=== PATIENT | male | born 1960 | race Caucasian/White ===

== ENCOUNTER 2022-10-19 08:02 | Outpatient (CLI) | payer BC, SELFPAY ==
[2022-10-19 15:04] LABS: Iron 120 ug/dL (37-181)
[2022-10-19 15:21] LABS: Hepatitis B Surface Antigen Negative (Negative); Percent Iron Saturation 35 % (20-50)
[2022-10-19 15:34] LABS: Hepatitis C Virus Antibody Negative (Negative)
== END 2022-10-19 08:03 | disposition home or self-care (01) ==
LOC: ANHGOSHLAB 08:02
PROVIDERS: PCP Internal Medicine; Visit Provider Internal Medicine
DX: R74.8 Abnormal levels of other serum enzymes (principal)
CPT/HCPCS: 36415; 82728; 83540; 83550; 86803; 87340

== ENCOUNTER 2023-01-29 08:00 | Outpatient (RCR) | payer BC, SELFPAY ==
--- NOTE | 2022-12-08 12:48 | OPREHPOC ---
Outpatient Therapy Plan of Care This is a Multidisciplinary Plan of Care that may contain components documented by all disciplines (PT, OT, and ST.) PT Problem 1 PT Problem #1 Knowledge Deficit PT Goal 1 Goal Pt to be IND with issued HEP Target Visit 8 PT Problem 2 PT Problem #2 Pain PT Goal 1 Goal Pt to report lumbar pain no greater than 3/10 in the last week Target Visit 8 PT Goal 2 Goal Pt to report 75% improvement in overall symptoms. Target Visit 8 PT Problem 3 PT Problem #3 Impaired Range of Motion PT Goal 1 Goal Pt to report equal stretch sensation with seated lumbar rotation Target Visit 8 PT Problem 4 PT Problem #4 Impaired Sensation PT Goal 1 Goal Pt to decline radiating symptoms in the last week. Target Visit 8
--- NOTE | 2022-12-08 12:49 | PTOPEVAL1 ---
Assessment and note entered by Silvio Barth, PT, DPT Evaluation Information Assessment Status Evaluation Diagnosis low back pain Onset 2 years ago Subjective Information Pt states a couple of years ago he was sitting in a chair that broke and he fell straight to the ground. He states he has back pain most of the time, but random days he does not, he has not noticed a pattern to this. When he is walking or standing for long periods of time the fronts of his legs will start to go asleep down to his knees . He states at rest he has a very small space of pain, but this increases with intensity and space with activity. Pt travels a lot for work, he states sleeping in different beds does not increase his pain. Reported Pain Level Pain Score 2: Self Report Assessment PT Clinical Summary Josiah presents to therapy today for his initial evaluation with a diagnosis of low back pain. Today he demonstrates a flattened lumbar spine in sitting and standing with tenderness to palpation along the sacral border. He demonstrates a flexion bias with proximation of symptoms with repeated flexion. He ambulates without any active trunk motion. Skilled therapy services are indicated to improve gait, spinal mobility, pain reports, standing tolerance, and to return to PLOF. Plan of Care Interventions Electrical Stimulation,Gait Training,Hot Pack/Cold Pack,Manual Therapy,Mechanical Traction,Neuro Re- education,Patient/Caregiver Educati,Prosthetic Training,Self-Care/Home Management PT Services Indicated Yes Treatment Frequency and 1-2x/wk for 8 visits Duration These treatments will address the objective and functional deficits as defined above. The patient will be advanced safely and appropriately in order for the patient to progress towards his/her prior level of function. Additional exercises will be introduced and as well as a comprehensive home exercise program upon discharge, if needed, ?to ensure carryover of functional gains achieved in the clinic. This treatment plan has been reviewed and agreement upon by the patient.
--- NOTE | 2023-01-05 08:48 | PTOPPROG ---
Assessment and note entered by Silvio Barth, PT, DPT Evaluation Information Assessment Status Progress Diagnosis low back pain Onset 2 years ago Subjective Information Pt states things are going well. He states his back is still sore but not as bad. He states it seems to still flair up for no reason. Pt reports 75% improvement in his symptoms. He states he still has numbness down his R leg but the intensity has decreased significantly. Assessment PT Clinical Summary Josiah presents to therapy today for his progress report following 4 visits of skilled therapy to treat his low back pain. Today he demonstrates improved hip and lumbar mobility and his pain reports are improving. He continues to have radicular pain but this is progressing well. Continuation of skilled therapy services are indicated to continue progressing towards therapy goals, improve pain reports and standing tolerance , and to return to PLOF. Plan of Care Interventions Electrical Stimulation,Gait Training,Hot Pack/Cold Pack,Manual Therapy,Mechanical Traction,Neuro Re- education,Patient/Caregiver Educati,Prosthetic Training,Self-Care/Home Management PT Services Indicated Yes Treatment Frequency and 1-2x/wk for 8 visits Duration These treatments will address the objective and functional deficits as defined above. The patient will be advanced safely and appropriately in order for the patient to progress towards his/her prior level of function. Additional exercises will be introduced and as well as a comprehensive home exercise program upon discharge, if needed, ?to ensure carryover of functional gains achieved in the clinic. This treatment plan has been reviewed and agreement upon by the patient.
--- NOTE | 2023-02-05 08:39 | PCPTNOTE ---
Patient called & cancelled scheduled appointment this date due to being unavailable. States he will call back to reschedule.
--- NOTE | 2023-03-08 08:23 | PTOPDC ---
Assessment and note entered by Silvio Barth, PT, DPT Evaluation Information Assessment Status Discharge - Pt Not Present Diagnosis low back pain Onset 2 years ago Subjective Information Called pt to follow up as he never rescheduled. Pt states he feels better than he has in years and does not feel he needs to return to therapy. Assessment PT Clinical Summary Josiah completed 6 visits of skilled therapy from 12/08/22 to 02/05/23. He will be discharged at this time per request.
== END 2023-03-08 09:25 | disposition home or self-care (01) ==
LOC: ANHGOSHPT 08:00
PROVIDERS: PCP Internal Medicine; Visit Provider Internal Medicine
DX: M54.50 Low back pain, unspecified (principal); G89.29 Other chronic pain
CPT/HCPCS: 97012; 97110; 97112; 97140; 97161; 97530

== ENCOUNTER 2023-03-17 09:39 | Outpatient (NON) | payer BC, SELFPAY ==
[2023-03-17 20:12] LABS: Appearance Urine Slightly Cloudy (Clear); Bilirubin Urine Negative (Negative); Blood Urine 2+ (Negative); Color Urine Yellow (Yellow); Glucose Urine UA Negative (Negative); Ketones Urine Negative (Negative); Leukocyte Esterase Ur 3+ LEU/UL (Negative); Nitrate Urine Positive (Negative); Protein Urine Negative (Negative); Urobilinogen Urine 0.2 mg/dL (<2.0); pH Urine 5.5 (5.0-9.0)
[2023-03-17 20:25] LABS: WBC Urine >100 /hpf (0-3)
[2023-03-17 20:26] LABS: Squamous Epithelial Cell Urine Few /hpf (Few)
[2023-03-17 20:27] LABS: Add Urine Microscopic? YES; Bacteria Urine 2+ /hpf
== END 2023-03-17 09:40 | disposition home or self-care (01) ==
LOC: ANHGOSHLAB 09:41
PROVIDERS: PCP Internal Medicine; Visit Provider Clinical Nurse Specialist
DX: R50.9 Fever, unspecified (principal)
CPT/HCPCS: 81001; 87077; 87086; 87186

== ENCOUNTER 2023-04-07 10:15 | Outpatient (CLI) | payer BC, SELFPAY ==
[2023-04-07 14:11] LABS: Appearance Urine Clear (Clear); Bilirubin Urine Negative (Negative); Blood Urine Negative (Negative); Color Urine Yellow (Yellow); Glucose Urine UA Negative (Negative); Ketones Urine Negative (Negative); Leukocyte Esterase Ur Negative LEU/UL (Negative); Nitrate Urine Negative (Negative); Protein Urine Negative (Negative); Specific Grav Ur 1.006 (1.001-1.035)
[2023-04-07 14:14] LABS: Add Urine Microscopic? NO
[2023-04-07 14:39] LABS: Alanine Aminotransferase 76 U/L (6-50); Albumin Level 4.4 g/dL (3.5-5.1); Alkaline Phosphatase 41 U/L (38-126); Aspartate Amino Transferase 82 U/L (17-59); Bilirubin,Total 1.4 mg/dL (0.2-1.3); Cholesterol 222 mg/dL (0-200); HDL Direct 53 mg/dL; Triglycerides 191 mg/dL (<150)
[2023-04-07 14:54] LABS: LDL Cholesterol Direct 132 mg/dL
[2023-04-11 14:44] LABS: Apolipoprotein B 121 mg/dL (<90)
== END 2023-04-07 10:16 | disposition home or self-care (01) ==
LOC: ANHGOSHLAB 10:17
PROVIDERS: Clinical Nurse Specialist; PCP Internal Medicine; Visit Provider Internal Medicine
DX: R74.8 Abnormal levels of other serum enzymes (principal); E78.5 Hyperlipidemia, unspecified; N39.0 Urinary tract infection, site not specified
CPT/HCPCS: 36415; 80061; 80076; 81003; 82172

== ENCOUNTER 2023-05-04 07:16 | Outpatient (CLI) | payer BC, SELFPAY ==
--- NOTE | ~2023-05-04 | US_ITS ---
US abdomen limited INDICATION: Abnormal levels of serum enzymes. PROCEDURE: Realtime right upper abdominal ultrasound. COMPARISON: No prior studies for comparison. FINDINGS: The pancreas is normal without focal mass or pancreatic ductal dilation. Liver echotexture is increased, consistent with fatty infiltration. There is normal directional flow in the portal ve in. There is comet tail artifact from nondependent bladder wall, consistent with adenomyomatosis. No gall stones identified. Common bile duct measures 5 mm. No sonographic Orantes's sign. IMPRESSION: 1: Gallbladder adenomyomatosis. 2: Hepatic steatosis. Reviewed, dictated and finalized at location L. LMAN
== END 2023-05-04 07:17 | disposition home or self-care (01) ==
PROVIDERS: PCP Internal Medicine; Visit Provider Internal Medicine
DX: E78.5 Hyperlipidemia, unspecified (principal); R74.8 Abnormal levels of other serum enzymes; K76.0 Fatty (change of) liver, not elsewhere classified; K82.8 Other specified diseases of gallbladder
CPT/HCPCS: 76705

== ENCOUNTER 2023-08-10 11:20 | Outpatient (CLI) | payer BC, SELFPAY ==
[2023-08-10 14:41] LABS: Hemoglobin 16.5 g/dL (14.0-18.0); Mean Corpuscular HGB Conc 34.4 g/dl (32-36); Mean Corpuscular Hemoglobin 33.6 pg (26-34); Mean Corpuscular Volume 97.8 fl (80-100); Mean Platelet Volume 10.7 fl (7.4-10.4); Platelet Count Result 219 k/mm3 (150-375); Red Blood Count 4.91 M/mm3 (4.6-6.20); Red Cell Distribution Width 12.2 % (11.5-14.5); White Blood Count 5.7 K/mm3 (4.5-10.0)
[2023-08-10 14:47] LABS: LDL Cholesterol Direct 122 mg/dL
[2023-08-10 14:54] LABS: Alanine Aminotransferase 47 U/L (6-50); Albumin Level 4.1 g/dL (3.5-5.1); Alkaline Phosphatase 38 U/L (38-126); Anion Gap 4 mmol/L (4-12); Aspartate Amino Transferase 70 U/L (17-59); Bilirubin,Total 1.6 mg/dL (0.2-1.3); Blood Urea Nitrogen 13 mg/dL (9-20); Calcium 9.6 mg/dL (8.4-10.2); Carbon Dioxide 30 mmol/L (22-30); Chloride 103 mmol/L (98-107); Cholesterol 196 mg/dL (0-200); Estimated Glomerular Filt Rate > 60; Glucose 97 mg/dL (65-110); HDL Direct 45 mg/dL; Potassium 3.5 mmol/L (3.4-5.0); Sodium 137 mmol/L (137-145); Triglycerides 230 mg/dL (<150)
[2023-08-12 20:16] LABS: Apolipoprotein B 105 mg/dL (<90)
== END 2023-08-10 11:21 | disposition home or self-care (01) ==
LOC: ANHGOSHLAB 11:22
PROVIDERS: PCP Internal Medicine; Visit Provider Internal Medicine
DX: E78.5 Hyperlipidemia, unspecified (principal); R74.8 Abnormal levels of other serum enzymes
CPT/HCPCS: 36415; 80053; 80061; 82172; 82728; 85027

== ENCOUNTER 2024-03-28 14:51 | Outpatient (CLI) | payer MEDICARE, SELFPAY ==
[2024-03-28 19:24] LABS: Basophils Absolute Auto 0.1 K/mm3 (0.0-0.1); Eosinophils Absolute Auto 0.5 K/mm3 (0-0.3); Eosinophils Percent Auto 5.3 % (0-4.4); Hematocrit 47.1 % (42.0-52.0); Immature Granulocyte Absolute 0.09 K/mm3 (0.00-0.031); Immature Granulocyte Percent A 1.1 % (0-0.5); Lymphocytes Absolute Auto 2.34 K/mm3 (0.9-3.2); Lymphocytes Percent Auto 27.8 % (18.3-44.2); Mean Corpuscular HGB Conc 36.1 g/dl (32-36); Mean Corpuscular Hemoglobin 35.1 pg (26-34); Mean Corpuscular Volume 97.1 fl (80-100); Mean Platelet Volume 10.8 fl (7.4-10.4); Monocytes Absolute Auto 0.7 K/mm3 (0.1-0.6); Monocytes Percent Auto 8.8 % (2.6-8.5); Neutrophils Absolute Auto 4.7 K/mm3 (1.3-6.7); Platelet Count Result 186 k/mm3 (150-375); Red Blood Count 4.85 M/mm3 (4.6-6.20); Red Cell Distribution Width 12.6 % (11.5-14.5); White Blood Count 8.4 K/mm3 (4.5-10.0)
[2024-03-28 19:34] LABS: Alanine Aminotransferase 57 U/L (6-50); Albumin Level 4.4 g/dL (3.5-5.1); Alkaline Phosphatase 36 U/L (38-126); Anion Gap 7 mmol/L (4-12); Aspartate Amino Transferase 97 U/L (17-59); Bilirubin,Total 2.2 mg/dL (0.2-1.3); Blood Urea Nitrogen 16 mg/dL (9-20); Calcium 9.4 mg/dL (8.4-10.2); Carbon Dioxide 27 mmol/L (22-30); Chloride 103 mmol/L (98-107); Estimated Glomerular Filt Rate > 60; Glucose 90 mg/dL (65-110); Sodium 137 mmol/L (137-145)
[2024-03-28 19:59] LABS: Prostate Specific Antigen 1.2 ng/mL (< OR = 4.0)
[2024-03-28 20:06] LABS: Iron 145 ug/dL (49-181)
[2024-03-28 20:16] LABS: Percent Iron Saturation 48 % (20-50)
== END 2024-03-28 14:52 | disposition home or self-care (01) ==
PROVIDERS: PCP Internal Medicine; Visit Provider Clinical Nurse Specialist
DX: Z12.5 Encounter for screening for malignant neoplasm of prostate (principal); I10 Essential (primary) hypertension; K75.81 Nonalcoholic steatohepatitis (NASH); R74.8 Abnormal levels of other serum enzymes; R79.89 Other specified abnormal findings of blood chemistry; G56.01 Carpal tunnel syndrome, right upper limb
CPT/HCPCS: 36415; 80053; 82728; 83540; 83550; 84153; 84443; 85025; G0103

== ENCOUNTER 2024-03-30 09:50 | Outpatient (CLI) | payer MEDICARE, SELFPAY | END 2024-03-30 09:51 | disposition home or self-care (01) | PROVIDERS: PCP Internal Medicine; Visit Provider Clinical Nurse Specialist | DX: H93.13 Tinnitus, bilateral (principal); H90.3 Sensorineural hearing loss, bilateral | CPT/HCPCS: 92557; 92567 ==

== ENCOUNTER 2024-04-03 08:42 | Outpatient (CLI) | payer MEDICARE, SELFPAY ==
--- NOTE | ~2024-04-03 | US_ITS ---
RIGHT UPPER QUADRANT ABDOMINAL ULTRASOUND (Doppler ultrasound interrogation techniques used as needed for this exam.) Ordering provider: SURY BranhamP-C History: . K75.81 - Nonalcoholic steatohepatitis (BROOKS) . Comparison: None. FINDINGS: PANCREAS: Normal echotexture and size. PORTAL VEIN: Hepatopedal flow demonstrated. LIVER: Normal size with fat infiltration. Hypoechoic area measuring 0.9 x 0.7 x 1 cm is seen in the r ight lobe adjacent to the gallbladder. No perihepatic fluid collections are identified. BILIARY DUCTS: No intra or extrahepatic biliary dilation. Common bile duct measures 4.6 mm in diamete r which is normal for patient's age. GALLBLADDER: Comet tail artifact. No stones, sludge, gallbladder wall thickening or pericholecystic f luid. Negative sonographic Orantes's sign. FREE FLUID: None visualized within the upper abdomen. IMPRESSION: Fat infiltration of the liver. Small cyst in the liver right lobe near the gallbladder. Highly sugges tive of gallbladder cholesterolosis. Otherwise, normal right upper quadrant ultrasound. Reviewed, dictated and finalized at location A. [facility] [employer] IMPRESSION: Fat infiltration of the liver. Small cyst in the liver right lobe near the gall bladder. Highly suggestive of gallbladder cholesterolosis. Otherwise, normal ri t upper quadrant ultrasound.
== END 2024-04-03 08:43 | disposition home or self-care (01) ==
LOC: MICIMG 08:43
PROVIDERS: PCP Internal Medicine; Visit Provider Clinical Nurse Specialist
DX: K76.0 Fatty (change of) liver, not elsewhere classified (principal); K82.8 Other specified diseases of gallbladder
CPT/HCPCS: 76705

== ENCOUNTER 2025-01-04 10:52 | Outpatient (CLI) | payer MEDICARE, SELFPAY ==
--- OUTSIDE RECORDS SUMMARY | 2025-01-04 11:00 | XMS_ITS | Encounter Summary ---
Author Organization [facility] Address [address] [place] [address] Care Team Providers Care Drier Feeder Name Role Phone Gomez Elliott MD Unavailable [phone] Myra Mckay MD Primary Care Provider [phone] Danyelle Young NP Primary Care Provider [phone] Jt Dias MD Primary Care Provider [phone] Encounter Details Date Type Department Care Team (Late st Contact Info) Description 10/28/2021 [facility] Wire[employer] Message Enc [facility] [address] [place] [id number] Roberto Lawrence MD [address] [place] [id number] Visit Follow Up Social History Tobacco Use Types Packs/Day Years Used Date Smoking Tobacco: Never Smokeless Tobacco: Never Comments:non smoker Alcohol Use Standard Drinks/Week Comments Yes 0 (1 standard drink = 0.6 oz pur e alcohol) 3-4 times aweek PHQ-2 Answer Date Recorded PHQ-2 Score - If the patient scores above 3, please move on to questions 3-9 0 10/04/2020 Sex and Gender Information Value Date Recorded Sex Assigned at Not on file Legal Sex Male 5:49 PM OFFICE AIDE Gender Identity Not on file Sexual Orientation Not on file COVID-19 Exposure Response Date Recorded In the last 10 days, have yo u been in contact with someone who was confirmed or suspected to have Coronavirus/COVID-19? No / Unsure 10/28/2021 9:31 AM CDT documented as of this encounter Plan of Treatment Not on file documented as of this encounter Visit Diagnoses Not on filedocumented in this encounter Care Teams Drier Feeder Relationship Specialty Start Date End Date Myra Mckay MD [address] [place] [phone] PCP - General FAMILY PRACTICE 03/29/20 06/28/22 [place] [phone] PCP - General Nurse Practitioner [facility] 06/29/2210/08 Jt Dias MD [address] [place] [address] [place] [address] PCP - General FAMILY PRACTICE 10/24/22 Gomez Elliott MD [address] [place] [phone] FAMILY PRACTICE 02/17/20 documented as of this encounter
--- OUTSIDE RECORDS SUMMARY | 2025-01-04 11:01 | XMS_ITS | Clinical Summary ---
Author Organization [facility] Address [address] [place] [address] Care Team Providers Care Crab Catcher Name Role Phone Unavailable Primary Care Provider Unavailabl e Social History Tobacco Use Types Packs/Day Years Used Date Smoking Tobacco: Never Assessed Sex and Gender Information Value Date Recorded Sex Assigned at Not on file Legal Sex Male 11:09 AM CDT Gender Identity Not on file Sexual Orientation Not on file Plan of Treatment Upcoming Encounters Date Type Department Care Team (Late st Contact Info) Description 01/24/2025 1:30 PM CDT Office Visit [facility] Oncology and Hematology - [address] [facility] [address] [place] [address] Marv Ramires MD [address] [facility] [address] [place] [address] Health Maintenance Due Date Last Done Comments DTAP/TDAP/TD VACCINES (1 - Tdap) 1977 COLORECTAL SCREENING 2003 Colorectal Cancer Screening 2003 FIT-DNA Q 3 years 2003 FIT/FOBT Q 1 year 2003 Flex Sig/CT Colonography Q 5 years 2003 PNEUMOCOCCAL VACCINE 50+ YEARS (1 of 1 - PCV) 06/23/19 09 ZOSTER VACCINE (1 of 2) 2008 INFLUENZA VACCINE (#1) 2024 RSV VACCINE (60+ or ) (1 - 1-dose 75+ series) 2033 Insurance MEDICARE PART A AND B [employer] MEDICARE SUPP AESSI
--- OUTSIDE RECORDS SUMMARY | 2025-01-04 11:01 | XMS_ITS | Clinical Summary ---
Author Organization [facility] Address [address] [place] [address] Phone Care Team Providers Care Industrial Maintenance Electrician Name Role Phone Aaron Brian DO Primary Care Provider [phone] Allergies Active Allergy Reactions Criticality Noted Date Comments Chlorhexidin-Isopropyl Alcohol Blisters High 03/22 Medications rosuvastatin (CRESTOR) 5 mg tabletIndicatio ns:hyperlipidem ia Take 1 tablet (5 mg total) by mouth optical effects line up person before breakfast Active Klor-Con M20 20 mEq CR tabletIndicatio ns:supplement Take 1 tablet (20 mEq total) by mouth 4 (four) times a day Active metoprolol XL (TOPROL-XL) 200 mg extended release tabletIndicatio ns:hypertension Take 0.5 tablets (100 mg total) by mouth optical effects line up person before breakfast Active furosemide (LASIX) 20 mg tabletIndicatio ns:Edema Take 1 tablet (20 mg total) by mouth daily as needed Active fenofibrate choline (TRILIPIX) 135 mg capsuleIndicati ons:hyperlipide kezia Take 1 capsule (135 mg total) by mouth optical effects line up person before breakfast Active chlorthalidone (HYGROTON) 50 mg tabletIndicatio ns:hypertension Take 0.5 tablets (25 mg total) by mouth optical effects line up person before breakfast 7 Active aspirin 81 mg enteric coated tabletIndicatio ns:prevention of thrombosis Take 1 tablet (81 mg total) by mouth optical effects line up person before breakfast Active allopurinoL (ZYLOPRIM) 300 mg tabletIndicatio ns:prevention of acute gout attack Take 1 tablet (300 mg total) by mouth optical effects line up person before breakfast Active acetaminophen (TYLENOL) 500 mg tablet Take 1 tablet (500 mg total) by mouth every 6 (six) hours as needed for pain 28 tablet 3 Active Additional Information Patient taking differently: 1,000 mgoral Every 6 hours PRN, pain, Informant: Self, Reported on 08/13/2023 ibuprofen 200 mg tab/cap Take 2 tablet/capsule (400 mg total) by mouth every 8 (eight) hours as needed for pain or headaches Active acetaminophen (TYLENOL) 500 mg tablet Take 1 tablet (500 mg total) by mouth every 6 (six) hours as needed for pain 30 tablet 4 Active oxyCODONE (ROXICODONE) 5 mg immediate release tabletIndicatio ns:Pain Take 1 tablet (5 mg total) by mouth every 4 (four) hours as needed for pain 10 tablet 4 Active Active Problems Problem Noted Date Diagnosed Date Carpal tunnel syndrome of left wrist 08/12/2023 Carpal tunnel syndrome of right wrist 02/05/2023 Surgical History Surgery Date Site/Laterality Comments KNEE SURGERY 05/10/2009 - 05/09/2010 Right meniscus SHOULDER ARTHROSCOPY W/ ROTA TOR CUFF REPAIR 05/10/2004 - 05/09/2005 Left COLONOSCOPY 05/10/2016 - 05/09/2017 CATARACT EXTRACTION 05/10/2015 - 05/09/2016 Right CATARACT EXTRACTION W/ INTRA OCULAR LENS IMPLANT 05/10/2015 - 05/09/2016 Left CARPAL TUNNEL RELEASE 02/16/2023 Right Family History Medical History Relation Name Comments Anesthesia problems Neg Hx Social History Tobacco Use Types Packs/Day Years Used Date Smoking Tobacco: Never Passive Smoke Exposure: Never Smokeless Tobacco: Never Tobacco Cessation:Counseling Given: Not Answered AUDIT-C Answer Date Recorded Q1: How often do you have a drink containing alc ohol? 2-3 times a week 08/27/2023 Q2: How many drinks containi ng alcohol do you have on a typical day when you are drinking? 3 or 4 08/27/2023 Q3: How often do you have si x or more drinks on one occasion? Never 08/27/2023 Personal Safety Answer Date Recorded Have you ever been in or are you currently in a harmful physical or emotional relationship or is someone making you feel afraid or unsafe? Denies 08/27/2023 Sex and Gender Information Value Date Recorded Sex Assigned at Not on file Legal Sex Male 9:24 AM CDT Gender Identity Not on file Sexual Orientation Not on file Obstetrics History Last Filed Vital Signs Vital Sign Reading Time Taken Comments Blood Pressure 157/85 08/27/2023 9:10 AM CDT Pulse 49 08/27/2023 9:10 AM CDT Temperature 36 C (96.8 F) 08/27/2023 8:35 AM CDT Respiratory Rate 11 08/27/2023 7:00 AM CDT Oxygen Saturation 94% 08/27/2023 9:10 AM CDT Inhaled Oxygen Concentration - - Weight 99.8 kg (220 lb) 08/13/2023 2:40 PM CDT Height 177.8 cm (5' 10) 08/13/2023 2:40 PM CDT Body Mass Index 31.57 08/13/2023 2:40 PM CDT Plan of Treatment Health Maintenance Due Date Last Done Comments Colon Cancer Screening-Colonoscopy 1958 Depression Screening 1958 Hepatitis C Screening 1958 Prostate Cancer Screening-PSA 1958 Hepatitis B Screening 1976 Pneumococcal vaccine 65+ (1 of 1 - PCV) 2008 Abdominal Aortic Aneurysm (A AA) Screen 2023 Well Visit 65+ 2023 Covid-19 Vaccine ( season) 2024 05/04/2021, 08/29/2020, 08/01/2020 DTaP/Tdap/Td Vaccine (2 - Td or Tdap) 05/10/202405/2014 Fall Risk Assessment 08/26/2024 08/27/2023 Influenza Vaccine (#1) 2025 2, 04/12/2021, 03/19/2020 Zoster Vaccine Completed 07/01/2019, 04/16/2019 Insurance [employer] [facility] [employer] Care Teams Industrial Maintenance Electrician Relationship Specialty Start Date End Date Aaron Brian DO PCP - General Internal Medicine 12/17/22
--- OUTSIDE RECORDS SUMMARY | 2025-01-04 11:01 | XMS_ITS | Clinical Summary ---
Author Organization [facility] Address [address] [place] [address] Care Team Providers Care Knife Setter Grinder Machine Name Role Phone Gomez Elliott MD Unavailable [phone] Jt Dias MD Primary Care Provider Allergies No known active allergies Medications aspirin EC 81 MG tablet Take 81 mg by mouth daily. Active rosuvastatin (CRESTOR) 5 MG tabletIndication s:Dyslipidemia Take 1 tablet (5 mg total) by mouth daily. 90 tablet 3 3 Active metoprolol succinate ER (TOPROL-XL) 200 MG 24 hr tabletIndication s:Hypertension, unspecified type Take 1 tablet one day alternating with 1/2 a tablet the next day. 90 tablet 3 3 Active furosemide (LASIX) 20 MG tabletIndication s:Edema, unspecified type Take 1 tablet (20 mg total) by mouth daily as needed. 90 tablet 3 3 Active chlorthalidone (HYGROTEN) 25 MG tabletIndication s:Hypertension, unspecified type Take 1 tablet (25 mg total) by mouth daily. 90 tablet 3 3 Active allopurinol (ZYLOPRIM) 300 MG tabletIndication s:Gout of foot, unspecified cause, unspecified chronicity, unspecified laterality Take 1 tablet (300 mg total) by mouth daily. 90 tablet 3 3 Active Choline Fenofibrate (FENOFIBRIC ACID) 135 MG CAPSULE DELAYED RELEASEIndicatio ns:Dyslipidemia Take 1 capsule by mouth daily. 90 capsule 3 3 Active potassium chloride CR (KLOR-CON M20) 20 MEQ tabletIndication s:Hypokalemia Take 3 tablets (60 mEq total) by mouth 2 (two) times daily. 180 tablet 3 Active Active Problems Problem Noted Date Diagnosed Date Hand numbness 10/04/2020 Overview (07/08/2022): September Has been having problems with numbness tingling and pain in bilateral hands for about 6 months Right is worse than the left Wakes up and his complete hand will be asleep Happens frequently throughout the day as well Reports that he has had neck pain for a number of years, has a history of left shoulder arthroscopy and not long after that he was lifting himself out of the pool, felt a pop on the right side and has had this pain since then, reports that he did have imaging of the area at the time and was told it was unremarkable Denies any weakness in the hands Assessment & Plan (10/04/2020 8:46 PM CDT): Exam is concerning for carpal tunnel although he may have some ulnar entrapment as well, does not appear to have cervical spine disease He will start with bracing his right wrist for sure during sleep, possibly during the day as well, agreeable to go see Ortho 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 Asymptomatic. 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 No SOB or chest pain. BP has been running WNL at home. Mar Doing well on decreased chlorthalidone and lasix. Checks BP at home. Denies cp, sob, le edema, and headaches. : Previously had been taking chlorthalidone for his blood pressure but needed very high doses of potassium, he was then switched to spironolactone but feels that this makes him retain fluid, primarily in the chest, wakes up short of breath gasping for air. Has mild leg swelling related to frequent air travel but no major edema, does not really report orthopnea except for after a night of sleep but otherwise can lay down flat with no problems, no chest pain pressure or squeezing. Walks about 1/2 mile daily at 2 to 3 miles an hour a 1% incline without any issues : Put on metoprolol for borderline BP and abnormal EKG; not sure what the abnormality was Checks blood pressure at home with a wrist cuff and it runs 120-130s/70 - 80s He walks briskly on his treadmill about 3 times a week and denies any chest pain pressure squeezing Assessment & Plan (07/08/2022 8:27 AM HEALTH AND SAFETY ADVISOR): Labs today No change Assessment & Plan (04/01/2022 8:55 AM HEALTH AND SAFETY ADVISOR): Labs at next visit No change to medication Assessment & Plan (10/04/2020 8:44 PM CDT): Discussed with patient that both medications have a weak diuretic effect so he really should not be getting fluid overloaded He seems overall euvolemic today and his symptoms are more concerning for sleep apnea He would like to restart the chlorthalidone with potassium and just see if it makes him feel better, if it does then we may switch him to a better blood pressure agent he does not require so much potassium, it does not make him feel better than he is agreeable to sleep apnea and/or cardiology work-up Assessment & Plan (03/29/2020 12:43 PM HEALTH AND SAFETY ADVISOR): Recommend he get an arm cuff and monitor more frequently at home, different times of the day Discussed that our goal is to have him lower than 140/90 Colon polyps 03/29/2020 Overview (07/08/2022): Jun Follows with Dr. Hugo. Due this winter for repeat colonoscopy. Mar Due for follow-up colonoscopy, needs referral to a new provider Has a history of colon cancer in her paternal aunt, no first-degree relatives Father and brother both with ulcerative colitis Assessment & Plan (07/08/2022 8:29 AM HEALTH AND SAFETY ADVISOR): Managed by [facility]. Assessment & Plan (03/29/2020 12:41 PM HEALTH AND SAFETY ADVISOR): Referred to Dr. Hugo Gout of foot 03/29/2020 Overview (07/08/2022): Jun On allopurinol. No issues with flares. Not interested in trial off. Mar Has history of one episode years ago, has been on allopurinol ever since Feels like the symptoms may worsen after frequent travel Assessment & Plan (07/08/2022 8:30 AM HEALTH AND SAFETY ADVISOR): No change Assessment & Plan (04/01/2022 8:56 AM HEALTH AND SAFETY ADVISOR): No changes Assessment & Plan (03/29/2020 12:42 PM HEALTH AND SAFETY ADVISOR): Discussed doing a trial off of medication, entirely up to him, elected to stay on for now Healthcare maintenance Overview (07/08/2022): COVID: x3 PNA: @ 63 INFLUENZA: UTD SHINGLES: UTD AAA LUNG SCREEN COLON: 2019, due Winter 2022 LABS: 2021 Assessment & Plan (07/08/2022 8:33 AM HEALTH AND SAFETY ADVISOR): Will make sure he sees Dr. Hugo this winter Labs today. Resolved Problems Problem Noted Date Diagnosed Date Resolved Date Edema, unspecified type 07/10/202103/11 Family history of colon cancer 03/29/2020 03/29/2020 Immunizations Immunization Administration Dates Next Due Influenza Adult (Generic) 05/08/2022,04/12/2021, 03/19/2020 PFIZER COVID-19 (ORIGINAL FO RMULATION, PURPLE CAP) mRNA, LNP-S, PF, 30 MCG/0.3 ML DOSE 05/04/2021,08/29/2020,08/01/2020 Shingrix 07/01/2019,04/16/2019 Tdap (Generic) 05/10/2014 Family History Medical History Relation Comments Prostate Cancer Brother Ulcerative Colitis Brother Emphysema Father Ulcerative Colitis Father Heart Attack Maternal Grandfather Dementia Mother Hypertension Mother Lipids Mother Colon Cancer Paternal Aunt Relation Status Comments Brother Father Maternal Grandfather Mother Alive Paternal Aunt Social History Tobacco Use Types Packs/Day Years Used Date Smoking Tobacco: Never Smokeless Tobacco: Never Tobacco Cessation:Counseling Given: No Comments:non smoker Alcohol Use Standard Drinks/Week Comments Yes 0 (1 standard drink = 0.6 oz pur e alcohol) 3-4 times aweek PHQ-2 Answer Date Recorded PHQ-2 Score - If the patient scores above 3, please move on to questions 3-9 0 04/01/2022 Sex and Gender Information Value Date Recorded Sex Assigned at Not on file Legal Sex Male 5:49 PM HEALTH AND SAFETY ADVISOR Gender Identity Not on file Sexual Orientation Not on file Last Filed Vital Signs Vital Sign Reading Time Taken Comments Blood Pressure 128/68 07/08/2022 8:06 AM HEALTH AND SAFETY ADVISOR Pulse 52 07/08/2022 8:06 AM HEALTH AND SAFETY ADVISOR Temperature 36.9 C (98.5 F) 04/01/2022 8:21 AM HEALTH AND SAFETY ADVISOR Respiratory Rate 16 07/08/2022 8:06 AM HEALTH AND SAFETY ADVISOR Oxygen Saturation 98% 07/08/2022 8:06 AM HEALTH AND SAFETY ADVISOR Inhaled Oxygen Concentration - - Weight 105.2 kg (231 lb 14.4 oz) 07/08/2022 8:06 AM HEALTH AND SAFETY ADVISOR Height 177.8 cm (5' 10) 07/08/2022 8:06 AM HEALTH AND SAFETY ADVISOR Body Mass Index 33.27 07/08/2022 8:06 AM HEALTH AND SAFETY ADVISOR Plan of Treatment Health Maintenance Due Date Last Done Comments Pneumococcal Vaccine: 50+ Years (1 of 1 - PCV) 2008 COVID-19 Vaccine (4 - 2023-2 5 season) 2024 05/04/2021, 08/29/2020, 08/01/2020 DTaP, Tdap and Td Vaccines ( 2 - Td or Tdap) 05/10/2024 05/10/2014 Colorectal Cancer Screening Colonoscopy (10 Years) 05/14/2026 05/14/2016 RSV Immunization or 60+ Years (1 - 1-dose 75+ series) 2033 Zoster Vaccines Completed 07/01/2019, 04/16/2019 Hepatitis C Completed 07/10/2021 Meningococcal B Vaccine Aged Out No l onger eligible based on patient's age to complete this topic Meningococcal Vaccine Aged Out No rene melida eligible based on patient's age to complete this topic RSV Immunizations Under 20 Months Aged Out No longer eligible b ased on patient's age to complete this topic Procedures Procedure Name Priority Date/Time Associated Diagnosis Comments HEPATITIS C ANTIBODY Routine 07/10/2021 9:23 AM HEALTH AND SAFETY ADVISOR Need for hepatitis C screening test COLONOSCOPY GENERIC (SCAN ORDER) 05/14/2016 from Last 3 Months or Most Recently Relevant to Health Maintenance Results * HEPATITIS C ANTIBODY (07/10/2021 9:23 AM HEALTH AND SAFETY ADVISOR) HEPATITIS C AB NON-REACTI VE NON-REACT ANGY 07/11/2021 6:53 PM HEALTH AND SAFETY ADVISOR [facility] Comment: ANTIBODIES TO HCV NOT DETECTED. DOES NOT EXCLUDE THE POSSIBILITY OF EXPOSURE TO HCV. 07/10/2021 9:23 AM HEALTH AND SAFETY ADVISOR us Myra Mckay MD LABORATORY Final Resu lt [facility] [address] [place] [id number], [id number] * COLONOSCOPY GENERIC (05/14/2016) 05/14/2016 Narrative 05/14/2016 Ordered by an unspecified provider. us Documents Scanned SCANNING Final Result from Last 3 Months or Most Recently Relevant to Health Maintenance Insurance [address] [id number] [facility] Partnered [facility] Care Teams Knife Setter Grinder Machine Relationship Specialty Start Date End Date Jt Dias MD [address] [place] [address] [place] [address] PCP - General FAMILY PRACTICE 10/24/22 Gomez Elliott MD [address] [place] [address] FAMILY PRACTICE 02/17/20
[2025-01-04 14:47] LABS: Anion Gap 7 mmol/L (4-12); Blood Urea Nitrogen 14 mg/dL (9-20); Calcium 9.9 mg/dL (8.4-10.2); Carbon Dioxide 29 mmol/L (22-30); Chloride 101 mmol/L (98-107); Estimated Glomerular Filt Rate > 60; Glucose 90 mg/dL (65-110); Magnesium 1.7 mg/dL (1.6-2.3); Potassium 4.4 mmol/L (3.4-5.0); Sodium 137 mmol/L (137-145)
== END 2025-01-04 10:53 | disposition home or self-care (01) ==
LOC: ANHGOSHLAB 10:54
PROVIDERS: PCP Internal Medicine; Visit Provider Internal Medicine
DX: E87.6 Hypokalemia (principal)
CPT/HCPCS: 36415; 80048; 83735

== ENCOUNTER 2025-01-24 13:55 | Outpatient (CLI) | payer MEDICARE, SELFPAY ==
--- OUTSIDE RECORDS SUMMARY | 2025-01-24 13:30 | XMS_ITS | Encounter Summary ---
Author Organization [facility] [employer] [facility] Address [address] [place] [address] Care Team Providers Care Shirt Folding Machine Operator Name Role Phone Unavailable Primary Care Provider Unavailabl e Encounter Details Date Type Department Care Team (Late st Contact Info) Description 01/24/2025 1:30 PM CDT Office Visit [facility] Oncology and Hematology - [place] [address] [facility] [address] [place] [address] Marv Ramires MD [address] [place] [address] Hereditary hemochromatosis (Primary Dx) Social History Tobacco Use Types Packs/Day Years Used Date Smoking Tobacco: Never Smokeless Tobacco: Never Tobacco Cessation:Counseling Given: Not Answered Alcohol Use Standard Drinks/Week Comments Yes 0 (1 standard drink = 0.6 oz pur e alcohol) Occasionally Sex and Gender Information Value Date Recorded Sex Assigned at Not on file Legal Sex Male 11:09 AM CDT Gender Identity Not on file Sexual Orientation Not on file documented as of this encounter Last Filed Vital Signs Vital Sign Reading Time Taken Comments Blood Pressure 173/92 01/24/2025 1:40 PM CDT Pulse 48 01/24/2025 1:37 PM CDT Temperature 36.5 C (97.7 F) 01/24/2025 1:37 PM CDT Respiratory Rate 15 01/24/2025 1:37 PM CDT Oxygen Saturation 98% 01/24/2025 1:37 PM CDT Inhaled Oxygen Concentration - - Weight 98.7 kg (217 lb 9.6 oz) 01/24/2025 1:37 P M CDT Height 177.8 cm (5' 10) 01/24/2025 1:37 PM CDT Body Mass Index 31.22 01/24/2025 1:37 PM CDT documented in this encounter Plan of Treatment Upcoming Encounters Date Type Department Care Team (Late st Contact Info) Description 02/01/2025 4:30 PM CDT Telephone Check Up [facility] Oncology and Hematology - [place] [address] [facility] [address] [place] [address] Marv Ramires MD [address] [place] [address] Scheduled Orders Name Type Priority Associated Diagnoses Orde r Schedule CBC WITH DIFFERENTIAL Lab Stat Hereditary hemochromatosis Expected: 01/24/2025, Expires: 01/24/2026 COMPREHENSIVE METABOLIC PANEL Lab Stat Hereditary hemochromatosis Expected: 01/24/2025, Expires: 01/24/2026 FERRITIN Lab Routine Hereditary hemochromatosis Expected: 01/24/2025, Expires: 01/24/2026 IRON, TIBC, AND PERCENT SATURATION Lab Routine Hereditary hemochromatosis Expected: 01/24/2025, Expires: 01/24/2026 TRANSFERRIN RECEPTOR TFR SOLUBLE Lab Routine Hereditary hemochromatosis Expected: 01/24/2025, Expires: 01/24/2026 documented as of this encounter Visit Diagnoses Diagnosis Hereditary hemochromatosis- Primary documented in this encounter
[2025-01-24 14:12] LABS: Hematocrit 46.9 % (42.0-52.0); Hemoglobin 16.7 g/dL (14.0-18.0); Immature Granulocyte Percent A 1.2 % (0-0.5); Lymphocytes Absolute Auto 2.39 K/mm3 (0.9-3.2); Mean Corpuscular HGB Conc 35.6 g/dl (32-36); Mean Corpuscular Hemoglobin 33.7 pg (26-34); Mean Corpuscular Volume 94.6 fl (80-100); Nucleated Red Blood Cells Absolute Auto 0.000 K/mm3 (0.0-0.012); Nucleated Red Blood Cells Perc 0.0 % (0.0-0.2); Platelet Count Result 207 k/mm3 (150-375); Red Blood Count 4.96 M/mm3 (4.6-6.20); White Blood Count 8.3 K/mm3 (4.5-10.0)
--- OUTSIDE RECORDS SUMMARY | 2025-01-24 14:34 | XMS_ITS | Clinical Summary ---
Author Organization [facility] Address [address] [place] [address] Care Team Providers Care Agriculture Extension Specialist Name Role Phone Gomez Elliott MD Unavailable Jt Dias MD Primary Care Provider Allergies [...] 125 Assessment & Plan (07/08/2022 8:28 AM PROGRAM ASSOCIATE): Labs today No change Assessment & Plan (03/29/2020 12:39 PM PROGRAM ASSOCIATE): Discussed new ASCVD guidelines, and offered a trial off of medications and calculate his ASCVD risk He does not have a preference one way or another so for now we will just keep him on the medications as is Labs next spring Vision problem 03/29/2020 Overview (03/29/2020): 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 Assessment & Plan (03/29/2020 12:41 PM PROGRAM ASSOCIATE): Referred to Dr. Hugo Gout of foot 03/29/2020 Overview (07/08/2022): Jun On allopurinol. No issues with flares. Not interested in trial off. Mar Has history of one episode years ago, has been on allopurinol ever since Feels like the symptoms may worsen after frequent travel Assessment & Plan (07/08/2022 8:30 AM PROGRAM ASSOCIATE): No change Assessment & Plan (04/01/2022 8:56 AM PROGRAM ASSOCIATE): No changes Assessment & Plan (03/29/2020 12:42 PM PROGRAM ASSOCIATE): Discussed doing a trial off of medication, entirely up to him, elected to stay on for now Healthcare maintenance Overview (07/08/2022): COVID: x3 PNA: @ 63 INFLUENZA: UTD SHINGLES: UTD AAA LUNG SCREEN COLON: 2019, due Winter 2022 LABS: 2021 Assessment & Plan (07/08/2022 8:33 AM PROGRAM ASSOCIATE): Will make sure he sees Dr. Hugo [...] on file Legal Sex Male 5:49 PM PROGRAM ASSOCIATE Gender Identity Not on file Sexual Orientation Not on file Last Filed Vital Signs Vital Sign Reading Time Taken Comments Blood Pressure 128/68 07/08/2022 8:06 AM PROGRAM ASSOCIATE Pulse 52 07/08/2022 8:06 AM PROGRAM ASSOCIATE Temperature 36.9 C (98.5 F) 04/01/2022 8:21 AM PROGRAM ASSOCIATE Respiratory Rate 16 07/08/2022 8:06 AM PROGRAM ASSOCIATE Oxygen Saturation 98% 07/08/2022 8:06 AM PROGRAM ASSOCIATE Inhaled Oxygen Concentration - - Weight 105.2 kg (231 lb 14.4 oz) 07/08/2022 8:06 AM PROGRAM ASSOCIATE Height 177.8 cm (5' 10) 07/08/2022 8:06 AM PROGRAM ASSOCIATE Body Mass Index 33.27 07/08/2022 8:06 AM PROGRAM ASSOCIATE Plan of Treatment Health Maintenance Due Date Last Done Comments Pneumococcal Vaccine: 50+ Years (1 of 1 - PCV) 2008 DTaP, Tdap and Td Vaccines ( 2 - Td or Tdap) 05/10/2024 05/10/2014 COVID-19 Vaccine (4 - 2024-2 6 season) 2025 05/04/2021, 08/29/2020, 08/01/2020 Colorectal Cancer Screening Colonoscopy (10 Years) 05/14/2026 [...] HEPATITIS C ANTIBODY Routine 07/10/2021 9:23 AM PROGRAM ASSOCIATE Need for hepatitis C screening test COLONOSCOPY GENERIC (SCAN ORDER) 05/14/2016 from Last 3 Months or Most Recently Relevant to Health Maintenance Results * HEPATITIS C ANTIBODY (07/10/2021 9:23 AM PROGRAM ASSOCIATE) HEPATITIS C AB NON-REACTI VE NON-REACT ANGY 07/11/2021 6:53 PM PROGRAM ASSOCIATE [facility] Comment: ANTIBODIES TO HCV NOT DETECTED. DOES NOT EXCLUDE THE POSSIBILITY OF EXPOSURE TO HCV. 07/10/2021 9:23 AM PROGRAM ASSOCIATE us Myra Mckay MD LABORATORY Final Resu lt [facility] [address] [place] [id number], [id number] * COLONOSCOPY GENERIC (05/14/2016) 05/14/2016 Narrative 05/14/2016 Ordered by an unspecified provider. us Documents Scanned SCANNING Final Result from Last 3 Months or Most Recently Relevant to Health Maintenance Insurance [address] [id number] [facility] [place] [employer] [facility] Care Teams Agriculture Extension Specialist Relationship Specialty Start Date End Date Jt Dias MD [address] [place] [address] [place] [address] PCP - General FAMILY PRACTICE 10/24/22 Gomez Elliott MD [address] [facility] [facility] [address] FAMILY PRACTICE 02/17/20
--- OUTSIDE RECORDS SUMMARY | 2025-01-24 14:34 | XMS_ITS | Clinical Summary ---
Author Organization [facility] Address [address] [facility] [address] [place] [address] Phone Care Team Providers Care Filter Tank Tender Helper Name Role Phone Aaron Brian DO Primary Care Provider [phone] Allergies Active Allergy Reactions Criticality Noted Date Comments Chlorhexidin-Isopropyl Alcohol Blisters High 03/22 Medications rosuvastatin (CRESTOR) 5 mg tabletIndicatio ns:hyperlipidem ia Take 1 tablet (5 mg total) by mouth early childhood director before breakfast Active Klor-Con M20 20 mEq CR tabletIndicatio ns:supplement Take 1 tablet (20 mEq total) by mouth 4 (four) times a day Active metoprolol XL (TOPROL-XL) 200 mg extended release tabletIndicatio ns:hypertension Take 0.5 tablets (100 mg total) by mouth early childhood director before breakfast Active furosemide (LASIX) 20 mg tabletIndicatio ns:Edema Take 1 tablet (20 mg total) by mouth daily as needed Active fenofibrate choline (TRILIPIX) 135 mg capsuleIndicati ons:hyperlipide kezia Take 1 capsule (135 mg total) by mouth early childhood director before breakfast Active chlorthalidone (HYGROTON) 50 mg tabletIndicatio ns:hypertension Take 0.5 tablets (25 mg total) by mouth early childhood director before breakfast 12/08/ 7 Active aspirin 81 mg enteric coated tabletIndicatio ns:prevention of thrombosis Take 1 tablet (81 mg total) by mouth early childhood director before breakfast Active allopurinoL (ZYLOPRIM) 300 mg tabletIndicatio ns:prevention of acute gout attack Take 1 tablet (300 mg total) by mouth early childhood director before breakfast Active acetaminophen (TYLENOL) 500 mg [...] AA) Screen 2023 Well Visit 65+ 2023 DTaP/Tdap/Td Vaccine (2 - Td or Tdap) 05/10/202405/2014 Fall Risk Assessment 08/26/2024 08/27/2023 Covid-19 Vaccine ( - season) 2025 05/04/2021, 08/29/2020, 08/01/2020 Influenza Vaccine (#1) 2025 2, 04/12/2021, 03/19/2020 Zoster Vaccine Completed 07/01/2019, 04/16/2019 Insurance [employer] [facility] [employer] Care Teams Filter Tank Tender Helper Relationship Specialty Start Date End Date Aaron Brian DO PCP - General Internal Medicine 12/17/22
--- OUTSIDE RECORDS SUMMARY | 2025-01-24 14:34 | XMS_ITS | Clinical Summary ---
Author Organization [facility] Address [address] [place] [address] Care Team Providers Care Pattern Keeper Name Role Phone Unavailable Primary Care Provider Unavailabl e Allergies No known active allergies Medications allopurinoL (ZYLOPRIM) 300 mg tablet Take 300 mg by mouth daily. Active chlorthalidone (HYGROTON) 25 mg tablet Take 25 mg by mouth daily. Active furosemide (LASIX) 20 mg tablet Take 20 mg by mouth daily in the morning. Active metoprolol succinate (TOPROL XL) 200 mg Extended Release 24 hour tablet Take 100 mg by mouth daily. Active potassium CHLORIDE (K-DUR,KLOR-CON M20) 20 mEq Extended Release tablet Take 20 mEq by mouth. Active rosuvastatin (CRESTOR) 5 mg tablet Take 5 mg by mouth daily. Active Active Problems No known active problems Encounters Date Type Department Care Team Description 01/24/2025 1:30 PM CDT Office Visit [facility] Oncology and Hematology - [place] [address] [address] Marv Ramires MD Hereditary hemochromatosis (Primary Dx) from Last 3 Months Family History Medical History Relation Name Comments Prostate Cancer Brother 1 Ulcerative Colitis Brother 1 No Known Problems Brother 2 No Known Problems Brother 3 No Known Problems Father No Known Problems Mother Relation Name Status Comments Brother 1 Alive Brother 2 Alive Brother 3 Alive Father Mother Social History Tobacco Use Types Packs/Day Years [...] Mass Index 31.22 01/24/2025 1:37 PM CDT Plan of Treatment Upcoming Encounters Date Type Department Care Team (Late st Contact Info) Description 02/01/2025 4:30 PM CDT Telephone Check Up [facility] Oncology and Hematology - [place] [address] [place] [address] [facility] [address] [place] [address] Marv Ramires MD [address] [facility] [address] [place] [address] Health Maintenance Due Date Last Done Comments Traditional Medicare (ACO) A nnual Wellness Visit 1977 FIT-DNA Q 3 years 2003 FIT/FOBT Q 1 year 2003 Flex Sig/CT Colonography Q 5 years 2003 PNEUMOCOCCAL VACCINE 50+ YEA RS (1 of 1 - PCV) 2008 DTAP/TDAP/TD VACCINES (2 - T d or Tdap) 05/10/2024 05/10/2014 INFLUENZA VACCINE (#1) 2024 COVID-19 Vaccine (4 - season) 2025 05/04/2021, 08/29/2020, 08/01/2020 COLORECTAL SCREENING 05/14/2026 05/14/2016 Colorectal Cancer Screening 05/14/2026 RSV VACCINE (60+ or ) (1 - 1-dose 75+ series) 2033 ZOSTER VACCINE Completed 07/01/2019, 04/16/2019 Insurance MEDICARE PART A AND B [employer] MEDICARE SUPP AESSI
--- OUTSIDE RECORDS SUMMARY | 2025-01-24 14:34 | XMS_ITS | Encounter Summary ---
Author Organization [facility] Address [address] [place] [address] Care Team Providers Care Package Collector Name Role Phone Gomez Elliott MD Unavailable [phone] Myra Mckay MD Primary Care Provider [phone]- [phone] Danyelle Young NP Primary Care Provider [phone] Jt Dias MD Primary Care Provider [phone] Encounter Details Date Type Department Care Team (Late st Contact Info) Description 10/28/2021 [facility] Message Enc [facility] [address] [place] [id number] Roberto Lawrence MD [address] [place] [phone] Visit Follow Up Social History Tobacco [...] on file Legal Sex Male 5:49 PM [employer] Gender Identity Not on file Sexual Orientation [...] on filedocumented in this encounter Care Teams Package Collector Relationship Specialty Start Date End Date Myra Mckay MD [address] [place] [id number] PCP - General FAMILY PRACTICE 03/29/20 06/28/22 [place] [phone] PCP - General Nurse Practitioner [facility] 06/29/2210/08 Jt Dias MD [address] [place] [address] [place] [address] PCP - General FAMILY PRACTICE 10/24/22 Gomez Elliott MD [address] [place] [phone] FAMILY PRACTICE 02/17/20 documented as of this encounter
[2025-01-24 17:09] LABS: Iron 93 ug/dL (49-181)
[2025-01-24 17:12] LABS: Alanine Aminotransferase 30 U/L (6-50); Albumin Level 4.5 g/dL (3.5-5.1); Alkaline Phosphatase 42 U/L (38-126); Anion Gap 9 mmol/L (4-12); Aspartate Amino Transferase 61 U/L (17-59); Bilirubin,Total 1.4 mg/dL (0.2-1.3); Blood Urea Nitrogen 16 mg/dL (9-20); Calcium 9.7 mg/dL (8.4-10.2); Carbon Dioxide 28 mmol/L (22-30); Chloride 100 mmol/L (98-107); Estimated Glomerular Filt Rate > 60; Glucose 91 mg/dL (65-110); Potassium 3.4 mmol/L (3.4-5.0); Sodium 137 mmol/L (137-145); Total Protein 7.4 g/dL (6.3-8.2)
[2025-01-24 17:19] LABS: Percent Iron Saturation 29 % (20-50)
[2025-01-24 17:45] LABS: Ferritin 308.00 ng/mL (11.1-264)
== END 2025-01-24 13:56 | disposition home or self-care (01) ==
LOC: ANHLAB 13:57
PROVIDERS: PCP Internal Medicine; Visit Provider Internal Medicine Hematology & Oncology
DX: E83.110 Hereditary hemochromatosis (principal)
CPT/HCPCS: 36415; 80053; 82728; 83540; 83550; 84238; 85025